=== PATIENT | female | born 1985 | race Caucasian/White ===

== ENCOUNTER → 2019-09-01 | Outpatient (CLI) | payer MEDICAID ==
--- NOTE | 2019-09-01 16:08 | US ---
EXAM DESCRIPTION: Venous,Lower Extremity LT: ULTRASOUND. CLINICAL HISTORY: PHLEBITIS AND THROMBOPHLEBITIS OF UNSP. SITE COMPARISON: None Available. TECHNIQUE: Escobedo-scale and doppler sonographic evaluation of the deep venous system of the left lower extremity. FINDINGS: Doppler evaluation shows normal color flow and normal phasicity and augmentation of the left common femoral vein, femoral vein, popliteal vein, greater saphenous vein, junction with the CFV. Also normal color flow and normal phasicity and augmentation of the peroneal, and posterior tibial vein. The left lower extremity deep veins were completely compressible; normal occlusion with transducer pressure. Escobedo-scale survey showed no echogenic thrombus within these veins. Circumscribed hypoechoic tissue measuring 1.9 x 1.5 x 1.2 cm, medial left knee. Wider than tall orientation and posterior acoustic enhancement. Feeding vessel. IMPRESSION: 1. Duplex ultrasound evaluation of the left lower extremity deep venous system showing no evidence of thrombosis. 2. Left medial knee soft tissue mass or complex fluid representing reactive lymph node versus small abscess. Electronically signed by: Clayton Fine MD 09/01/2019 4:06 PM CDT
== END ==
LOC: US 10:49
PROVIDERS: ATTEND Obstetrics & Gynecology
DX: R22.42 Localized swelling, mass and lump, left lower limb (principal); I80.9 Phlebitis and thrombophlebitis of unspecified site